=== PATIENT | male | born 1980 | race African-American/Black ===

== ENCOUNTER 2016-07-23 12:47 | Emergency (ER) | payer SELFPAY ==
[~2016-07-23] VITALS: Ht 185.4 cm; Wt 62.5 kg
[~2016-07-23 12:47] MED LIST: DARV PO; SULF1TAB47 PO; Z.0.NO CURRENT MEDS
[2016-07-23 12:50] VITALS: BP 119/64; PULSE 84; RESP 14; TEMP 98.5; O2SAT 98
[2016-07-23] MEDS ORDERED: PENI500T PO (13:08)
[2016-07-23] MEDS ORDERED: TRAM50TA PO (13:09)
[2016-07-23] MEDS ORDERED: IBUP800T23 PO (13:09)
--- NOTE | 2016-07-23 13:09 | PD ---
HPI Chief Complaint: Oral / Dental Pain or Problem Time Seen by Provider: 13:01 Travel History International Travel<30 days: No Contact w/Intl Traveler<30days: No Traveled to known affect area: No History of Present Illness HPI Patient is a 35-year-old male presenting to the emergency for evaluation of left lower tooth pain and jaw swelling. States he had pain in his left lower teeth last night after eating, he awoke at 2 AM this morning and noticed his jaw was swollen. He took Tylenol last night for the pain but has not had any medications today. He reports his pain is an 8/10 and describes it as aching and throbbing. He denies any dysphagia, headache, neck pain. PFSH Past Medical History Medical History: Denies Significant Hx Tetanus Vaccination: > 5 Years Influenza Vaccination: Yes Social History Alcohol Use: Yes (occ) Tobacco Use: Yes Substance Use: No Allergies-Medications (Allergen,Severity, Reaction): Coded Allergies: No Known Allergies (Verified , 07/23/16) Reported Meds & Prescriptions Reported Meds & Active Scripts Active Tramadol (Tramadol HCl) 50 Mg Tab 50 Mg PO Q6H PRN Ibuprofen 800 Mg Tab 800 Mg PO Q6HR PRN Penicillin V Potassium 500 Mg Tab 500 Mg PO Q6H 10 Days Review of Systems Except as stated in HPI: all other systems reviewed are Neg General / Constitutional: No: Fever, Chills HENT: Positive: Dental Difficulties, No: Headaches, Sore Throat, Neck Pain Cardiovascular: No: Chest Pain or Discomfort Respiratory: No: Shortness of Breath Gastrointestinal: No: Dysphagia Musculoskeletal: Positive: Edema Physical Exam Narrative GENERAL: Well-nourished, well-developed patient. SKIN: Focused skin assessment warm/dry. HEAD: Normocephalic. Swelling noted to left lower jaw, no erythema noted. MOUTH: Mucous membranes moist, no lesions, tongue and gums appear normal. Left lower third molar is broken off at the gumline, multiple dental caries noted mouth. No obvious dental abscesses noted along gumline or inner buccal surface. EYES: No scleral icterus. No injection or drainage. NECK: Supple, trachea midline. No JVD or lymphadenopathy. CARDIOVASCULAR: Regular rate and rhythm without murmurs, gallops, or rubs. RESPIRATORY: Breath sounds equal bilaterally. No accessory muscle use. GASTROINTESTINAL: Abdomen soft, non-tender, nondistended. MUSCULOSKELETAL: No cyanosis, or edema. BACK: Nontender without obvious deformity. No CVA tenderness. Data Data Last Documented VS Vital Signs Date Time Temp Pulse Resp B/P Pulse Ox O2 Delivery O2 Flow Rate FiO2 07/23/16 12:50 98.5 84 14 119/64 98 [facility] Medical Decision Making Medical Screen Exam Complete: Yes Emergency Medical Condition: Yes Interpretation(s) Vital Signs Date Time Temp Pulse Resp B/P Pulse Ox O2 Delivery O2 Flow Rate FiO2 07/23/16 12:50 98.5 84 14 119/64 98 Differential Diagnosis Abscess versus dental caries versus cellulitis versus other Narrative Course Patient is a 35-year-old male presenting to emergency department for evaluation of left lower tooth pain and jaw swelling. Patient is afebrile, is well oxygenated on room air, vital signs are stable. Patient has multiple dental caries and mouth, there is no obvious drainable abscess on gums. Patient will be started on antibiotics and given information regarding local dental clinics in the area. He was advised that he will need to see a dentist for further evaluation and treatment. He was encouraged to return to emergency department for any new or worsening symptoms. Patient verbalized understanding of these instructions. Patient is stable for discharge. Diagnosis Primary Impression: Dental abscess Referrals: Dentist 1 week Patient Instructions: Dental Abscess (ED), Dental Caries (DC), General Instructions Additional Instructions: Follow-up with the dentist for further evaluation and treatment Please full course of antibiotics as prescribed Return to emergency department for any new or worsening symptoms Med/Other Pt SpecificInfo: Prescription(s) given Scripts Tramadol 50 Mg Tab50 Mg PO Q6H PRN (PAIN) #8 TAB Ref 0 Prov:Stephanie Thompson MD 07/23/16 Ibuprofen 800 Mg [id number] Mg PO Q6HR PRN (PAIN) #40 TAB Ref 0 Prov:Milana Dillon 07/23/16 Penicillin V Potassium 500 Mg [id number] Mg PO Q6H 10 Days Ref 0 Prov:Milana Dillon 07/23/16 Disposition: 01 DISCHARGE HOME Condition: Stable Milana Dillon Jul 23, 2016 13:09 Milana Dillon Jul 23, 2016 13:09
--- NOTE | 2016-07-23 13:11 | PD ---
Data Data Last Documented VS Vital Signs Date Time Temp Pulse Resp B/P Pulse Ox O2 Delivery O2 Flow Rate FiO2 07/23/16 12:50 98.5 84 14 119/64 98 MDM Supervised Visit with KARRIE: Yes Narrative Course I, Dr. Thompson, have reviewed the advance practice practioner's documentation and am in agreement, met with the patient face to face, made the diagnosis, and the medical decision making was done by me. *My assessment and Findings: 35-year-old male here with complaint of dental pain. On exam patient has dental swelling and left sided facial swelling, but no palpable abscess. Floor the mouth is soft. Exam is consistent with dental abscess. No evidence of Chidi angina. Diagnosis Primary Impression: Dental abscess Referrals: Dentist 1 week Patient Instructions: General Instructions, Dental Abscess (ED), Dental Caries (DC) Additional Instruction: Follow-up with the dentist for further evaluation and treatment Please full course of antibiotics as prescribed Return to emergency department for any new or worsening symptoms Scripts Tramadol 50 Mg Tab50 Mg PO Q6H PRN (PAIN) #8 TAB Ref 0 Prov:Stephanie Thompson MD 07/23/16 Ibuprofen 800 Mg [id number] Mg PO Q6HR PRN (PAIN) #40 TAB Ref 0 Prov:Milana Dillon 07/23/16 Penicillin V Potassium 500 Mg [id number] Mg PO Q6H 10 Days Ref 0 Prov:Milana Dillon 07/23/16 Disposition: 01 DISCHARGE HOME Condition: Stable Stephanie Thompson MD Jul 23, 2016 13:11
== END 2016-07-23 13:44 | disposition home or self-care (01) ==
LOC: NEPD 12:47
DX: K04.7 Periapical abscess without sinus (principal); Z72.0 Tobacco use
CPT/HCPCS: 99282